=== PATIENT | male | born 1975 | race Caucasian/White ===

== ENCOUNTER 2018-03-25 08:15 | Outpatient (RCR) | payer OTHER ==
--- NOTE | 2018-03-09 11:03 | PT INITIAL EVALUATION ---
MEDICAL DIAGNOSIS: low back pain TREATMENT DIAGNOSIS: same DATE OF ONSET: 02/26/18 SUBJECTIVE: Dawood Mock presents to physical therapy with low back pain that started like 2 weeks ago. He reports that the pain is worse with standing and sitting and better with walking and being on the move. He reports that the low back pain has progressed to being on the L and R side of the spine and causes spasms. He rates his current pain to be 3-4/10. He reports that his pain is worse with bending and feels like he can not bend at all. Pain location is L and R erector spinae and described as achy. Pain scale is 4 on a ten point pain scale. REHAB PROBLEM LIST: Increased Pain Decreased ROM Decreased Strength Decreased Endurance Decreased Function PREVIOUS MEDICAL HISTORY: See EMR OCCUPATION: Professor at the [employer] OBJECTIVE: Posture: He demonstrated decreased lumbar lordosis other than that he demonstrated excellent posture mechanics. ROM: Trunk AROM: flexion: major restriction with flexion with end range pain. extension: NIL with muscular end feel. side gliding R: NIL with muscular end feel. side gliding L: NIL with muscular end feel. Palpation: TTP: L and R erector spinae from T12 to L5 Sensation: Intact Special Tests: Repeated flexion: pain during the stretch and better following the test. Mobility: Independent Gait: Normal gait mechanics ASSESSMENT: Dawood Mock will benefit from skilled physical therapy to address the listed impairments to improve function and return to prior level of function. Based on the examination, his provisional classification in anterior derangement that responded well with flexion based exercises to improve function and QOL. Short Term Goals 2 weeks: Pt will demonstrate directional preference with reduction of pain and increased trunk AROM in all directions to improve function and QOL. 3 weeks: Pt will demonstrate centralized low back pain with resulting improvements in trunk AROM in all directions to improve function and QOL. 4 weeks: Pt will demonstrate abolished low back pain and return to full trunk AROM in all directions to improve function and QOL. 6 weeks: Pt will return to prior level of function without any restrictions to improve function and QOL. Patient's Goals reduce pain, return to sport PLAN: Patient to be seen for Manual Therapy/STM/MET Strengthening/condition Range of Motion Spinal Stabilization Work Hardening/Cond Stretching Neuromuscular Re-ed Closed Chain Program Home Exercise Program Therapeutic Activities 2-3x/week for 6 Weeks If you have any questions, comments, or concerns about this report or plan, please contact me at . Thank you, Kojo Samuel PT, DPT [facility]
[~2018-03-25 08:15] MED LIST: CETI10CA8 PO
--- NOTE | 2018-03-25 17:54 | PT PLAN OF CARE ---
Physician: Self Referral Patient is being seen: 2x/week Therapist: Kojo Samuel, PT, DPT Medical Diagnosis: low back pain Treatment Diagnosis: same Date of Onset: 02/26/18 Date of Initial Evaluation: 03/08/18 Date patient was last seen: 03/25/18 Number of treatments: 6 Number of cancellations/No shows: 0 INTERVENTIONS: Manual Therapy/STM/MET Strengthening/condition Range of Motion Spinal Stabilization Work Hardening/Cond Stretching Neuromuscular Re-ed Closed Chain Program Home Exercise Program Therapeutic Activities GOALS: 2 weeks: Pt will demonstrate directional preference with reduction of pain and increased trunk AROM in all directions to improve function and QOL. MET 3 weeks: Pt will demonstrate centralized low back pain with resulting improvements in trunk AROM in all directions to improve function and QOL. MET 4 weeks: Pt will demonstrate abolished low back pain and return to full trunk AROM in all directions to improve function and QOL. MET 6 weeks: Pt will return to prior level of function without any restrictions to improve function and QOL. MET PATIENT'S GOAL: reduce pain, return to sport: MET Status of Patient's Goals: MET Patient Compliance: Excellent Prognosis: Excellent Reasons for continuing therapy: This is a discharge note for Dawood Mock. He reports that he is doing well. He reports that as long as he does his exercise he is able to maintain his pain in his low back. Furthermore, he reports that the pain will abolish in his low back as well following the exercise. He reports that he feels like he can finish off the program and return to prior level of function. He demonstrated centralized and abolished low back pain with his specific exercise along with full trunk AROM with normal end feels. He was independent on his education to reduce reoccurrences. As a result, he will be discharged from formal PT. Posture: He demonstrated decreased lumbar lordosis other than that he demonstrated excellent posture mechanics. ROM: Trunk AROM: flexion: NIL with muscular end range pain. extension: NIL with muscular end feel. side gliding R: NIL with muscular end feel. side gliding L: NIL with muscular end feel. Palpation: No longer TTP Mobility: Independent If you have any questions, please contact me at [phone]. Thank you, Kojo Samuel, PT, DPT [facility]
== END 2018-03-25 18:00 | disposition home or self-care (01) ==
LOC: PT 08:15
PROVIDERS: ATTEND Family Medicine
DX: M54.5 Low back pain (principal); M62.838 Other muscle spasm
CPT/HCPCS: 97161

== ENCOUNTER 2019-03-06 16:45 | Outpatient (RCR) | payer OTHER ==
--- NOTE | 2019-02-21 10:11 | PT INITIAL EVALUATION ---
MEDICAL DIAGNOSIS: low back pain, SI pain TREATMENT DIAGNOSIS: same DATE OF ONSET: 02/19/19 SUBJECTIVE: Dawood Mock presents to physical therapy with complaints of low back pain along with radiating pain down his L LE to mid thigh that started on Wednesday while digging out his vehicle from a snow drift, in which, he fell through a snow drift resulting in low back pain. He reports that when he walks since the incident it feels like one leg is longer than the other. He states that flexion felt great following the injury but as the days pass it seems to make it worse. He also reports that extension seemed to make the injury worse. Furthermore, he reports that he cannot sit and does better if on the move or walking. He also does worse with bending, rising, lying with his leg straight. He reports that the pain started to go down his leg late Wednesday night into Wednesday. He reports that it is worse in the morning and worse if he staying in one position too long. Furthermore, he reports that he is worse with when any sort of stretch is placed on his spine. He rates his standing/current pain to be 4/10. He rates his pain to be 8/10 when he does something wrong. He reports that it is extremely difficulty to put on his socks and shoes. He reports that he feels the injury is becoming worse. Pain location is L4-5 facet joint on either side R/L. REHAB PROBLEM LIST: Increased Pain Decreased ROM Decreased Function Decreased ADL's Decreased Gait PREVIOUS MEDICAL HISTORY: See EMR OCCUPATION: Professor at OBJECTIVE: Posture: He demonstrates normal posture mechanics and no lateral shifts were noted ROM: Trunk AROM: flexion: major restriction with pain (able to reach patellar tendon insertions), extension: moderate restriction with pain, side gliding R: minimal restriction with muscular end feel, side gliding L: moderate restriction with pain coming back Strength: B LE's: 5/5 with no pain Palpation: TTP: L4-5 facet joint on either side R/L, B SI joints Sensation: Intact L1-S2 Special Tests: R LE is much longer than L LE due to muscular leg length discrepancy that was corrected utilizing the shotgun approach, which he is independent on. He demonstrated 3/6 tests positive for SI involvement. We will explore the low back involvement and rule it out or in and then transition to his SI joints. Mobility: Independent Gait: He demonstrated antalgic gait, decreased L stance time, decreased R step length, increased circumduction with R LE, increased lateral trunk movement, and decreased velocity. ASSESSMENT: Dawood will benefit from skilled physical therapy addressing the listed impairments to improve function and QOL. Based on his examination, I would classify him as a derangement along with muscular leg length discrepancy that we were able to correct. He is independent with the technique to maintain his L lengths equal, which improved gait mechanics and decreased pain with function mobility. We will explore directional preference next session with his low back and SI joints. We will first rule in or out his low back and then if it is not his low back, we will rule in our out his SI joints. Short Term Goals 2 weeks: Pt will demonstrate directional preference to reduce pain and return to prior level of function. 4 weeks: Pt will demonstrate abolished pain and return to prior level of function. 6 weeks: Pt will demonstrate abolished pain and return to sport to improve function and QOL. Patient's Goals get rid of the pain PLAN: Patient to be seen for 2-3x/week for 6 Weeks Kojo Samuel, PT, DPT [facility]TD[facility]
--- NOTE | 2019-03-08 08:50 | PT PLAN OF CARE ---
Physician: Direct Access Patient is being seen: 2x/week Therapist: Kojo Samuel PT, DPT Medical Diagnosis: low back pain, SI pain Treatment Diagnosis: same Date of Onset: 02/19/19 Date of Initial Evaluation: 02/21/19 Date patient was last seen: 03/08/19 Number of treatments: 7 Number of cancellations/No shows: 0 INTERVENTIONS: Ther ex, manual therapy GOALS: 2 weeks: Pt will demonstrate directional preference to reduce pain and return to prior level of function. 4 weeks: Pt will demonstrate abolished pain and return to prior level of function. 6 weeks: Pt will demonstrate abolished pain and return to sport to improve function and QOL. PATIENT'S GOAL: get rid of the pain Status of Patient's Goals: MET Patient Compliance: Excellent Prognosis: Excellent Reasons for continuing therapy: This is a discharge note for Dawood Mock. He reports that he is doing well. He reports that he does not have any pain or stiffness with movement in his life. He reports that he feels like his hips are maintaining the level. He reports that if he sits or stands to long he will get some stiffness in his low back region. He reports that he feels like this episode was more severe than the previous episodes but it also recovered faster than the previous episodes. He reports that he feels independent in the remainder of his recovery of function. Posture: He demonstrates normal posture mechanics and no lateral shifts were noted ROM: Trunk AROM: flexion: NIL with normal end feel, extension: NIL with normal end feel, side gliding R: NIL with normal end feel, side gliding L: NIL with normal end feel. Strength: B LE's: 5/5 with no pain Palpation: TTP: No longer TTP Special Tests: No longer has leg length discrepancy Mobility: Independent If you have any questions or concerns, please contact me at [phone]. Thank you, Kojo Samuel PT, DPT [facility]aw
== END 2019-03-08 18:20 | disposition home or self-care (01) ==
LOC: PT 16:45
PROVIDERS: ATTEND Family Medicine
DX: M54.5 Low back pain (principal); R26.89 Other abnormalities of gait and mobility
CPT/HCPCS: 97162